=== PATIENT | female | born 1995 | race Two or more races ===

== ENCOUNTER 2025-01-08 15:34 | Emergency (ER) | payer MEDICAID, SELFPAY ==
[2025-01-08 15:59] VITALS: BP 148/99; PULSE 109; RESP 18; TEMP 37.6; O2SAT 97; BMI 43.7
--- NOTE | 2025-01-08 16:27 | PD.EDRME ---
Rapid Medical Screening Exam RME Arrival date/time: 01/08/25 15:34 This is a 29year old female with complaint of abdominal pain and vomiting. hx of diabetes. I have greeted and performed a focused initial assessment of this patient. Initial appropriate labs ordered at this time. A comprehensive ED assessment and evaluation of the patient and analysis of all test and completion of medical decision making process will be conducted by additional ED provider. Chief Complaint: Abdominal Pain Time Seen by Provider: 01/08/25 15:37 Vital signs: Vital Signs Temperature 99.7 F 01/08/25 15:59 Pulse Rate 109 H 01/08/25 15:59 Respiratory Rate 18 01/08/25 15:59 Blood Pressure 148/99 H 01/08/25 15:59 Pulse Oximetry (%) 97 01/08/25 15:59 Oxygen Delivery Method Room Air 01/08/25 15:59
[2025-01-08 16:45] LABS: Basophils % (Auto) 0 % (0-2.5); Eosinophils # (Auto) 0.1 Thou/mm3 (0.0-0.5); Eosinophils % (Auto) 1 % (0-10); Hematocrit 43.5 % (36.0-46.0); Hemoglobin 14.7 g/dL (12.0-16.0); Immature Granulocytes % (Auto) 0 % (0-0); Immature Granulocytes Auto 0.01 Thou/mm3 (0.00-0.00); Lymphocytes # (Auto) 0.9 Thou/mm3 (1.0-4.8); Lymphocytes % (Auto) 15 % (10-50); Mean Corpuscular HGB Conc 33.8 g/dl (31.0-37.0); Mean Corpuscular Hemoglobin 28.9 pg (25.0-35.0); Mean Corpuscular Volume 86 fL (80-100); Monocytes # (Auto) 0.4 Thou/mm3 (0.0-0.8); Monocytes % (Auto) 7 % (0-12); Neutrophils # (Auto) 4.5 Thou/mm3 (1.8-7.7); Neutrophils % (Auto) 76 % (37-80); Nucleated Red Blood Cell % 0 /100 WBC (0); Platelet Count 202 Thou/mm3 (140-440); RDW Standard Deviation 43.8 fL (36.4-46.3); Red Blood Count 5.09 Miln/mm3 (4.00-5.20); White Blood Count 5.8 Thou/mm3 (3.6-11.0)
[2025-01-08 17:08] LABS: Alanine Aminotransferase 12 U/L (10-49); Albumin, Serum 4.3 gm/dL (3.5-5.0); Albumin/Globulin Ratio 1.1 (1.2-2.2); Alkaline Phosphatase 93 U/L (46-116); Anion Gap 7 (7-16); Aspartate Amino Transferase 19 U/L (0-34); BUN/Creatinine Ratio 14 Ratio (12-20); Blood Urea Nitrogen 10 mg/dL (9-23); Calcium 8.4 mg/dL (8.3-10.6); Calcium (Corrected) 8.4 mg/dL (8.5-10.1); Carbon Dioxide 27.8 mMol/L (20.0-31.0); Chloride 104 mMol/L (98-107); Creatinine (Component) 0.7 mg/dL (0.6-1.3); Globulin 3.8 gm/dL (2.3-3.5); Glucose 114 mg/dL (74-106); Lipase 30 U/L (12-53); Osmolality,Calculated 277 (275-295); Potassium 3.8 mMol/L (3.4-5.1); Sodium 139 mMol/L (136-145); Total Protein 8.1 gm/dL (5.7-8.2); eGFR > 60 See Note
[2025-01-08 17:24] LABS: Collection Type, Urine Voided
[2025-01-08 17:37] LABS: HCG Qualitative,Urine Negative
[2025-01-08 17:40] LABS: Bacteria,Urine Rare; Bilirubin,Urine Negative (Negative); Blood,Urine Negative (Negative); Clarity,Urine Turbid (Clear/Hazy); Color,Urine Yellow (Lt Yel-Yel); Culture Indicated,Urine Contaminated; Glucose, Urine Negative (Negative); Ketones,Urine Negative (Negative); Leukocyte Esterase,Urine Positive (Negative); Nitrite,Urine Negative (Negative); Protein,Urine 1+ (Neg - Trace); RBC,Urine 3 /hpf (0-3); Specific Gravity,Urine 1.034 (1.001-1.035); Squamous Epithelial Cell,Urine 21 /hpf (0-5); Urobilinogen,Urine Negative mg/dL (0.0-1.0); WBC,Urine 26 /hpf (0-5)
--- NOTE | 2025-01-08 18:37 | PD.EDABDPN ---
ED Abdominal Pain RME/HPI General Chief Complaint: Abdominal Pain Stated complaint: ABD PAIN, VOMITING X YESTERDAY Time seen by provider: 01/08/25 15:37 Arrival date/time: 01/08/25 15:34 RME / HPI RME / HPI narrative: 01/08/25 15:34 This is a 29year old female with complaint of abdominal pain and vomiting. hx of diabetes. I have greeted and performed a focused initial assessment of this patient. Initial appropriate labs ordered at this time. A comprehensive ED assessment and evaluation of the patient and analysis of all test and completion of medical decision making process will be conducted by additional ED provider. Dr. Verdin?s Main ED Evaluation: 29yo female with a history of DM (not on medications) presents to the ED for a chief complaint of LUQ pain x 3 days. Patient states she's had intermittent LUQ pain that migrates across her abdomen for the last 1 month, but reports it's worsened over the last 3 days. Patient states her pain now radiates to her left flank and currently rates her pain a 6 out of 10 in severity. Patient reports associated nausea and vomiting since yesterday, along with urinary frequency and body aches. Patient denies any diarrhea, hematuria, weight loss, dysuria or any other associated symptoms. She denies any previous abdominal surgeries. NKA. Related Data Previous Rx's ?Medication ?Instructions ?Recorded metformin 500 mg tablet 500 mg PO BID #60 tabs 07/06/20 nystatin 100,000 unit/gram topical 1 applic topical BID fungal rash 07/06/20 cream #60 grams hydroxyzine HCl 25 mg tablet 25 mg PO BID PRN nausea and 08/13/22 vomiting #14 tabs ciprofloxacin HCl 500 mg tablet 500 mg PO BID #14 tabs 08/16/22 acetaminophen 650 mg 650 mg PO Q8H PRN fever or pain 08/20/22 tablet,extended release #30 tabs ibuprofen 600 mg tablet 600 mg PO Q8H PRN fever or pain 08/20/22 #30 tabs aluminum-mag hydroxide-simethicone 10 ml PO TID PRN indigestion 01/08/25 400 mg-400 mg-40 mg/5 mL oral susp #3,000 mL (Almacone-2) famotidine 20 mg tablet (Pepcid) 20 mg PO BID GERD #14 tabs 01/08/25 ondansetron 4 mg disintegrating 4 mg PO Q6H PRN nausea and 01/08/25 tablet vomiting #14 tabs Allergies Allergy/AdvReac Type Severity Reaction Status Date / Time No Known Allergies Allergy Verified 01/08/25 15:37 Review of Systems Review of Systems Systems Reviewed: All systems reviewed, normal except as documented Past Medical History Past Medical History CARDIAC: Negative Congestive Heart Failure RESPIRATORY: Negative Chronic Obstructive Pulmonary Disease (COPD) GENITOURINARY: Negative Renal Disease ENDOCRINE: Negative Diabetes Mellitus Type 1 or Diabetes Mellitus Type 2 Social History SMOKING STATUS: Never smoker ED Exam Narrative Physical exam: GENERAL APPEARANCE: alert and oriented x 4, well-developed, well-nourished, no acute distress VITALS: All vitals were reviewed and the pulse ox is 97% on room air, which is normal according to my interpretation. HEENT: Normocephalic, atraumatic; pupils equal, round, reactive to light; EOMI; mucous membranes pink, moist; oropharynx clear NECK: Supple LUNGS: CTABL; no wheezes, no rales, no rhonchi HEART: Regular rate, regular rhythm; normal S1, S2; no murmurs ABDOMEN: non distended; normal BS; soft, LLQ tenderness, no guarding, no rebound; no masses, no organomegaly, no hernia BACK: mild left CVA tenderness EXTREMITIES: atraumatic; no edema NEUROLOGIC: awake; alert and oriented x4; cranial nerves II-XII grossly intact; no focal sensory or motor deficits PSYCHIATRIC: appropriate mood and affect SKIN: warm, dry, normal color; no rashes Course Quality Measures none Orders Category Date Time Status Bedside COVID-19 Antigen Test NOW Care 01/08/25 18:43 Completed Bedside Influenza A&B Antigen Test NOW Care 01/08/25 18:[address] Screening NOW Care 01/08/25 18:42 Completed Production Control Manager STAT Care 01/08/25 18:37 Completed Continuous Pulse Oximetry STAT Care 01/08/25 18:38 Completed Insert IV STAT Care 01/08/25 18:37 Completed NPO STAT Care 01/08/25 18:[address] abdomen pelvis wo/w con Stat Exams 01/08/25 18:40 Completed CBC Stat Lab 01/08/25 16:37 Completed Comprehensive Metabolic Panel Stat Lab 01/08/25 16:37 Completed Free T4 (Free Thyroxine) Stat Lab 01/08/25 16:37 Completed HCG Qualitative,Urine Stat Lab 01/08/25 16:50 Completed Lipase Stat Lab 01/08/25 16:37 Completed Magnesium Stat Lab 01/08/25 16:37 Completed Thyroid Stimulating Hormone Stat Lab 01/08/25 16:37 Completed Urinalysis, C/S if Indicated Stat Lab 01/08/25 16:50 Completed Acetaminophen Ivpb [Ofirmev Inj] Med 01/08/25 18:44 Discontinued 1,000 mg in 100 ml IV X1 Morphine Inj Med 01/08/25 18:40 Discontinued 2 mg IVP Q30M PRN Ondansetron Inj [Zofran Inj] Med 01/08/25 18:40 Discontinued 4 mg IV X1 ONE Sodium Chloride 0.9% 1000 ml [Ns] 1,000 ml Med 01/08/25 18:37 Discontinued IV 999 mls/hr Vital Signs Vital signs: Vital Signs Temperature 99.7 F 01/08/25 15:59 Pulse Rate 109 H 01/08/25 15:59 Respiratory Rate 18 01/08/25 15:59 Blood Pressure 148/99 H 01/08/25 15:59 Pulse Oximetry (%) 97 01/08/25 15:59 Oxygen Delivery Method Room Air 01/08/25 15:59 Abdominal Pain MDM MDM Narrative MDM Narrative:: Scribe Attestation: 01/08/25 - Erum Hunt am scribing for and in the presence of Dr. Verdin. 1844: CT abdomen pelvis ordered to r/o kidney stone, diverticulitis, and UTI. 0928: Patient's repeat HR is in the 80s and she feels significantly better. Patient is stable to be discharged home. Patient data External records reviewed:: [facility] previous records (Per chart review, patient was seen here on 09/15/22 for UTI.) Clinical information provided by:: patient Social determinants that could affect healthcare access:: none Patient has the following chronic illnesses:: DM How is presenting disease/condition affected by chronic disease/condition?: uneffected by Evaluation data The following diagnostics were reviewed and interpreted by me:: lab results and radiology exam(s) Lab and/or radiology exams considered but not ordered:: none Interpretation Summary: CBC is normal, Lipase is normal, Free T4 and TSH are normal, Bedside COVID and Influenza are negative, according to my interpretation. --------- [facility] Report Signed Patient: AQUILINO ALLISON. Record#: [id number] Birthdate: 1995 Age/Sex: 29 / F [facility] Attending Dr: Ordering Physician: Darrel Verdin MD Date of Service: 01/08/25 Procedure(s): CT abdomen pelvis wo/w con Accession Number(s): [id number] cc: Montez Bueno MD; NO PRIMARY/FAMILY,PHYSICIAN; Darrel Verdin MD~ Examination: CT abdomen, without intravenous contrast. CT pelvis, without intravenous contrast. CT abdomen, with intravenous contrast. CT pelvis, with intravenous contrast. 2-D sagittal coronal reconstructions. Date and time of exam:January 08, 2025 1935 hours INDICATIONS: Left upper abdominal pain beginning 3 days ago CTDI: vol (mGy) 22.1 DLP: (mGycm) 2336 Technique: Multiple 3.0 axial images of the abdomen and pelvis without intravenous contrast, 3.0 mm slice thickness. Multiple 3.0 postcontrast images abdomen and pelvis also obtained, post intravenous injection of 60 cc Isovue 370 2-D sagittal and coronal reconstructions. Low dose protocols were performed. One or more of the following dose reduction techniques were used; automated exposure control, adjustment of the mA and/or KV according to patient size, use of iterative reconstruction technique. Findings: Hepatomegaly 22 cm diffuse fatty infiltration No focal liver or splenic lesions No gallstones No pancreatic or adrenal mass No renal or ureteral calculi, no hydronephrosis 22 mm fat-containing umbilical hernia Normal appendix No bowel obstruction Partially retroverted uterus No uterine or adnexal mass No bladder mass Advanced degenerative disc disease L3-L4, L4-L5 IMPRESSION: Hepatomegaly, 22 cm, diffuse fatty infiltration throughout the liver No renal or ureteral calculi, no hydronephrosis Normal appendix No bowel obstruction Scattered colonic diverticulosis, no diverticulitis Dictated By: Montez Bueno MD Signed By: <Electronically signed by Montez Bueno MD in OV> 01/08/25 2101 Medications / Prescriptions Medications or Prescriptions considered but not ordered:: none Medication administrations:: Medication Administration History Discontinued Medications Sodium Chloride (Ns) 1,000 mls @ 999 mls/hr IV .Q1H1M ONE Stop: 01/08/25 19:37 Last Infusion: 01/08/25 20:46 Dose: Infused Documented By: Admin: 01/08/25 19:27 Dose: 999 mls/hr Documented By: CCT Acetaminophen (Ofirmev Inj) 1,000 mg in 100 mls @ 250 mls/hr IV X1 ONE Stop: 01/08/25 19:07 Last Infusion: 01/08/25 20:15 Dose: Infused Documented By: Admin: 01/08/25 19:26 Dose: 250 mls/hr Documented By: CCT Morphine Sulfate (Morphine Sulf Inj 10 Mg/Ml Vial) 2 mg IVP Q30M PRN PRN Reason: PAIN Ondansetron HCl (Ondansetron Inj 2 Mg/Ml Inj 2 Ml) 4 mg IV X1 ONE; Protocol Stop: 01/08/25 18:41 Last Admin: 01/08/25 19:26 Dose: 4 mg Documented By: CCT see above Consultations Consultation(s) initiated? (list below): No Diagnosis Differential diagnosis abdominal pain: diverticulitis and other (pyelonephritis, UTI, renal colic) Most likely diagnosis given after review of the tests above:: see clinical impression below Admission Indicated Admission indicated?: not indicated Admission Request Was there a request for admission?: No Disposition Plan Disposition Plan: Discharge Discharge Attestation Discharge Attestation: The patient and all family members were given an opportunity to ask questions and understood the discharge instructions. Discharge instructions specifically effects, indications for sooner follow up or return to the emergency department, and the expected course of current diagnosis. Patient condition: Stable Discharge Plan Plan Patient Disposition: HOME (Self Care) Discharge Disposition comment: Stable for discharge home Patient condition on transfer: Stable Prescriptions/Referrals Prescriptions/Med Rec: New ondansetron 4 mg tablet,disintegrating 4 mg PO Q6H PRN (Reason: nausea and vomiting) Qty: 14 0RF famotidine [Pepcid] 20 mg tablet 20 mg PO BID Qty: 14 0RF alum-mag hydroxide-simeth [Almacone-2] 400-400-40 mg/5 mL suspension 10 ml PO TID PRN (Reason: indigestion) Qty: 3000 0RF No Action metformin 500 mg tablet 500 mg PO BID Qty: 60 0RF nystatin 100,000 unit/gram cream 1 applic topical BID Qty: 60 0RF hydroxyzine HCl 25 mg tablet 25 mg PO BID PRN (Reason: nausea and vomiting) Qty: 14 0RF ciprofloxacin HCl 500 mg tablet 500 mg PO BID Qty: 14 0RF acetaminophen 650 mg tablet extended release 650 mg PO Q8H PRN (Reason: fever or pain) Qty: 30 0RF Rx Instructions: swallow whole; do not chew/break/dissolve/open ibuprofen 600 mg tablet 600 mg PO Q8H PRN (Reason: fever or pain) Qty: 30 0RF Referrals: No Primary/Family,Physician [Primary Care Provider] - In 1 week Problem List Clinical Impression: Abdominal pain, Vomiting Patient/Caregiver Discharge Instructions Discharge Activity: activity as tolerated Education Materials: Abdominal Pain, ED Vomiting (Adult) Additional Instructions: Please return to the emergency department if you have any worsening or any further medical problems. Otherwise you should follow-up with your primary care doctor within the next several days. Print Language: Wolof Stand Alone Forms: Gabby Award Info., Patient Portal Info Letter
--- NOTE | 2025-01-08 18:40 | XR_ITS ---
Examination: CT abdomen, without intravenous contrast. CT pelvis, without intravenous contrast. CT abdomen, with intravenous contrast. CT pelvis, with intravenous contrast. 2-D sagittal coronal reconstructions. Date and time of exam:January 08, 2025 1935 hours INDICATIONS: Left upper abdominal pain beginning 3 days ago CTDI: vol (mGy) 22.1 DLP: (mGycm) 2336 Technique: Multiple 3.0 axial images of the abdomen and pelvis without intravenous contrast, 3.0 mm slice thickness. Multiple 3.0 postcontrast images abdomen and pelvis also obtained, post intravenous injection of 60 cc Isovue 370 2-D sagittal and coronal reconstructions. Low dose protocols were performed. One or more of the following dose reduction techniques were used; automated exposure control, adjustment of the mA and/or KV according to patient size, use of iterative reconstruction technique. Findings: Hepatomegaly 22 cm diffuse fatty infiltration No focal liver or splenic lesions No gallstones No pancreatic or adrenal mass No renal or ureteral calculi, no hydronephrosis 22 mm fat-containing umbilical hernia Normal appendix No bowel obstruction Partially retroverted uterus No uterine or adnexal mass No bladder mass Advanced degenerative disc disease L3-L4, L4-L5 IMPRESSION: Hepatomegaly, 22 cm, diffuse fatty infiltration throughout the liver No renal or ureteral calculi, no hydronephrosis Normal appendix No bowel obstruction Scattered colonic diverticulosis, no diverticulitis
[2025-01-08 19:20] VITALS: BP 142/80; PULSE 94; RESP 18; TEMP 36.9; O2SAT 97
[2025-01-08] MEDS: ACETAMINOPHEN IVPB 1,000 MG/100 ML VIAL 250 MG IV (19:26)
[2025-01-08] MEDS: ONDANSETRON INJ 2 MG/ML INJ 2 ML 4 MG IV (19:26)
[2025-01-08] MEDS: SODIUM CHLORIDE 0.9% 1000 ML 1,000 ML 999 ML IV (19:27)
[2025-01-08 20:15] VITALS: PULSE 83
[2025-01-08 20:26] LABS: Free T4 (Free Thyroxine) 1.04 ng/dL (0.89-1.76); Magnesium 1.9 mg/dL (1.6-2.6); Thyroid Stimulating Hormone 1.48 uIU/mL (0.55-4.78)
[2025-01-08 22:10] VITALS: BP 133/81; PULSE 84; RESP 18; TEMP 36.9; O2SAT 99
== END 2025-01-08 22:10 | disposition home or self-care (01) ==
PROVIDERS: Nurse Practitioner Family; Emergency Provider Emergency Medicine
DX: K57.30 Diverticulosis of large intestine without perforation or abscess without bleeding (principal); R11.2 Nausea with vomiting, unspecified; E11.9 Type 2 diabetes mellitus without complications; K76.0 Fatty (change of) liver, not elsewhere classified
CPT/HCPCS: 36415; 74178; 80053; 81001; 81025; 83690; 83735; 84439; 84443; 85025; 87400; 87811; 96361; 96365; 96375; 99285; A4649; J0131; J2405; J7030; Q9967

== ENCOUNTER 2025-02-20 04:10 | Emergency (ER) | payer MEDICAID, SELFPAY ==
[2025-02-20 04:22] VITALS: BP 122/84; PULSE 90; RESP 17; TEMP 36.6; O2SAT 100
[2025-02-20 04:26] VITALS: PULSE 100; BMI 46.5
--- NOTE | 2025-02-20 04:57 | EDNOTE_ITS ---
<Statement entered by Patricia Oconnor MD - 03/04/25 19:09> As co-signing physician, I was present and available for consult prn. I concur with the plan and care as documented by the midlevel provider. ED Anxiety RME/HPI General Chief Complaint: Anxiety Stated Complaint: ANXIETY Time Seen by Provider: 02/20/25 04:52 Source: patient, RN notes reviewed and old records reviewed Arrival date/time: 02/20/25 04:10 Mode of arrival: ambulatory Limitations: no limitations RME / HPI RME / HPI narrative: 29yof presents to ED for 1-month history of intermittent anxiety and panic attacks that worsened today. Patient has hx of anxiety but currently not on anxiolytics. Reports recent stressors at home. c/o mild shortness of breath that has improved with decrease in anxiety. No cp, n/v, dizziness or SI/HI reported. 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 Related Data Previous Rx's ?Medication ?Instructions ?Recorded metformin 500 mg tablet 500 mg PO BID #60 tabs 07/06 nystatin 100,000 unit/gram topical 1 applic topical BI D fungal rash 07/06/20 cream #60 grams hydroxyzine HCl 25 mg tablet 25 mg PO BID PRN nausea a nd 08/13/22 vomiting #14 tabs ciprofloxacin HCl 500 mg tablet 500 mg PO BID #14 tabs 08/16/22 acetaminophen 650 mg 650 mg PO Q8H PRN fever or p ain 08/20/22 tablet,extended release #30 tabs ibuprofen 600 mg tablet 600 mg PO Q8H PRN fever or p ain 08/20/22 #30 tabs aluminum-mag hydroxide-simethicone 10 ml PO TID PRN in digestion 01/08/25 400 mg-400 mg-40 mg/5 mL oral susp #3,000 mL (Almacone-2) famotidine 20 mg tablet (Pepcid) 20 mg PO BID GERD #14 tabs 01/08/25 ondansetron 4 mg disintegrating 4 mg PO Q6H PRN nausea and 01/08/25 tablet vomiting #14 tabs hydroxyzine HCl 50 mg tablet 50 mg PO Q6H PRN anxiety #20 tabs 02/20/25 Allergies Allergy/AdvReac Type Severity Reaction Status Date / Time No Known Allergies Allergy Verified 01/08/25 15:37 Review of Systems Review of Systems Systems Reviewed: All systems reviewed, normal except as documented Constitutional Constitutional: Denies headache(s) ENT Ears, Nose, Mouth, and Throat: Denies dizziness and Denies headache(s) Cardiovascular Cardiovascular: Denies chest pain and Reports dyspnea Respiratory Respiratory: Reports dyspnea Neurologic Neurologic: Denies dizziness and Denies headache(s) Psychiatric Psychiatric: Reports anxiety, Denies homicidal ideation and Denies suicidal ideation Past Medical History Past Medical History GASTROINTESTINAL: Positive Obesity PSYCHO/SOCIAL: Positive Anxiety Social History SMOKING STATUS: Never smoker SUBSTANCE USE: does not use ALCOHOL: Never ED Exam General Limitations: Present no limitations General appearance: Present alert and in no apparent distress Head Head exam: Present atraumatic and normocephalic Eye Eye exam: Present normal appearance, PERRL and EOMI ENT ENT exam: Present normal exam and mucous membranes moist Neck Neck exam: Present normal inspection and full ROM Chest Chest inspection: Present normal inspection and symmetric chest wall rise Respiratory Respiratory exam: Present normal lung sounds bilaterally; Absent respiratory distress Cardiovascular Cardiovascular exam: Present regular rate and normal rhythm Extremities Exam Extremities exam: Present normal inspection and full ROM Neurological Exam Neurological exam: Present alert and oriented X3 Psychiatric Psychiatric exam: Present other (Tearful, mildly anxious); Absent homicidal ideation or suicidal ideation Skin Skin exam: Present warm, dry, intact and normal color Course Quality Measures none Vital Signs Vital signs: Vital Signs Temperature 97.8 F 02/20/25 04:22 Pulse Rate 90 02/20/25 04:22 Respiratory Rate 17 02/20/25 04:22 Blood Pressure 122/84 02/20/25 04:22 Pulse Oximetry (%) 100 02/20/25 04:22 Oxygen Delivery Method Room Air 02/20/25 04:22 Anxiety MDM Narrative MDM Narrative: 29yof presents to ED for 1-month history of intermittent anxiety and panic attacks that worsened today. Patient has hx of anxiety but currently not on anxiolytics. Reports recent stressors at home. c/o mild shortness of breath that has improved with decrease in anxiety. No cp, n/v, dizziness or SI/HI reported. 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 Patient reassessed. She is feeling better, anxiety has subsided. No SI/HI. Will rx atarax. Encouraged close pcp follow up. Stable for dc, RTED precautions given. Patient data External records reviewed:: [facility] previous records (5/17/25 ED visit for abdominal pain) Clinical information provided by:: patient Social determinants that could affect healthcare access:: mental health Patient has the following chronic illnesses:: anxiety How is presenting disease/condition affected by chronic disease/condition?: caused by Evaluation data The following diagnostics were reviewed and interpreted by me:: other (specify) (none) Lab and/or radiology exams considered but not ordered:: EKG: no cp reported Interpretation Summary: na Medications / Prescriptions Medications or Prescriptions considered but not ordered:: none Medication administrations:: po ativan administered in ED Consultations Consultation(s) initiated? (list below): No Diagnosis Differential diagnosis anxiety: hyperventilation, panic disorder and acute anxiety Most likely diagnosis given after review of the tests above:: anxiety Admission Indicated Admission indicated?: not indicated Admission Request Was there a request for admission?: No Disposition Plan Disposition Plan: Discharge Discharge Attestation Discharge Attestation: The patient and all family members were given an opportunity to ask questions and understood the discharge instructions. Discharge instructions specifically effects, indications for sooner follow up or return to the emergency department, and the expected course of current diagnosis. Patient condition: Stable Discharge Plan Plan Patient Disposition: HOME (Self Care) Patient condition on transfer: Stable Prescriptions/Referrals Prescriptions/Med Rec: New hydroxyzine HCl 50 mg tablet 50 mg PO Q6H PRN (Reason: anxiety) Qty: 20 0RF No Action metformin 500 mg tablet 500 mg PO BID Qty: 60 0RF nystatin 100,000 unit/gram cream 1 applic topical BID Qty: 60 0RF ondansetron 4 mg tablet,disintegrating 4 mg PO Q6H PRN (Reason: nausea and vomiting) Qty: 14 0RF famotidine [Pepcid] 20 mg tablet 20 mg PO BID Qty: 14 0RF alum-mag hydroxide-simeth [Almacone-2] 400-400-40 mg/5 mL suspension 10 ml PO TID PRN (Reason: indigestion) Qty: 3000 0RF hydroxyzine HCl 25 mg tablet 25 mg PO BID PRN (Reason: nausea and vomiting) Qty: 14 0RF ciprofloxacin HCl 500 mg tablet 500 mg PO BID Qty: 14 0RF acetaminophen 650 mg tablet extended release 650 mg PO Q8H PRN (Reason: fever or pain) Qty: 30 0RF Rx Instructions: swallow whole; do not chew/break/dissolve/open ibuprofen 600 mg tablet 600 mg PO Q8H PRN (Reason: fever or pain) Qty: 30 0RF Referrals: Kevin Rick [Primary Care Provider] - In 1 week Problem List Clinical Impression: Anxiety Patient/Caregiver Discharge Instructions Education Materials: ED Anxiety Reaction Print Language: Trinidadian Stand Alone Forms: [facility] Award Info., Patient Portal Info Letter PA/GETTERING FILAMENT MACHINE OPERATOR Supervising Physician PA/GETTERING FILAMENT MACHINE OPERATOR Supervising Physician: Elvin
[2025-02-20] MEDS: LORazepam 0.5 MG TABLET 1 MG PO (05:28)
[2025-02-20 05:50] VITALS: RESP 16
== END 2025-02-20 05:51 | disposition home or self-care (01) ==
PROVIDERS: Emergency Provider Emergency Medicine; PCP Family Medicine
DX: F41.9 Anxiety disorder, unspecified (principal)
CPT/HCPCS: 99282; A9270

== ENCOUNTER 2025-07-30 19:12 | Emergency (ER) | payer MEDICAID, SELFPAY ==
[2025-07-30 19:14] VITALS: BMI 43.8
[2025-07-30 19:28] VITALS: BP 172/90; PULSE 99; RESP 20; TEMP 37.1; O2SAT 100
--- NOTE | 2025-07-30 19:32 | XR_ITS ---
EXAMINATION: Left hand 2 views TECHNIQUE: AP lateral left hand 2 views Date and time: July 30, 2025, 193 hours INDICATIONS: Injury to the hand today, hand pain. FINDINGS: No acute fracture No dislocation No foreign body IMPRESSION: No acute fracture
--- NOTE | 2025-07-30 19:32 | XR_ITS ---
Examination: Knee, left, 3 views Technique: Knee AP, lateral, oblique 3 views Date and time of exam: July 30, 2025, 1938 hours INDICATIONS: Injury to the knee today, knee pain. FINDINGS: No fracture or dislocation No foreign body IMPRESSION: No fracture or dislocation
--- NOTE | 2025-07-30 19:32 | XR_ITS ---
EXAMINATION: Left wrist 2 views TECHNIQUE: AP lateral left wrist 2 views Date and time: July 30, 2025, 194 hours INDICATIONS: Injury of the wrist today, wrist pain FINDINGS: No acute fracture No foreign body No cortical bone destruction IMPRESSION: No acute fracture
--- NOTE | 2025-07-30 21:22 | PC.NURSE ---
knee immobilizer applied at this time per providers order, pt tolerated well. denies pain or discomfort
--- NOTE | 2025-07-30 21:23 | PC.NURSE ---
baudilio bandage applied to L hand, pt tolerated well
--- NOTE | 2025-07-31 05:01 | EDNOTE_ITS ---
ED Fall Injury RME/HPI General Chief Complaint: Fall Stated Complaint: LEFT HAND, LEFT KNEE PAIN S/P FALL Time Seen by Provider: 07/30/25 19:21 Arrival date/time: 07/30/25 19:12 This is a case of 30-year-old female with no medical history came into the emergency room due to fall injury history of present illness started 2 hours prior to arrival in the emergency room patient tripped and fell and landed on his left knee patient also complaining of left wrist and left hand pain patient states that she used his left hand and wrist to stop falling patient denies any head neck chest or abdominal injury no loss of consciousness Limitations: no limitations Related Data Previous Rx's ?Medication ?Instructions ?Recorded metformin 500 mg tablet 500 mg PO BID #60 tabs 07/06 nystatin 100,000 unit/gram topical 1 applic topical BI D fungal rash 07/06/20 cream #60 grams hydroxyzine HCl 25 mg tablet 25 mg PO BID PRN nausea a nd 08/13/22 vomiting #14 tabs ciprofloxacin HCl 500 mg tablet 500 mg PO BID #14 tabs 08/16/22 acetaminophen 650 mg 650 mg PO Q8H PRN fever or p ain 08/20/22 tablet,extended release #30 tabs ibuprofen 600 mg tablet 600 mg PO Q8H PRN fever or p ain 08/20/22 #30 tabs aluminum-mag hydroxide-simethicone 10 ml PO TID PRN in digestion 01/08/25 400 mg-400 mg-40 mg/5 mL oral susp #3,000 mL (Almacone-2) famotidine 20 mg tablet (Pepcid) 20 mg PO BID GERD #14 tabs 01/08/25 ondansetron 4 mg disintegrating 4 mg PO Q6H PRN nausea and 01/08/25 tablet vomiting #14 tabs hydroxyzine HCl 50 mg tablet 50 mg PO Q6H PRN anxiety #20 tabs 02/20/25 hydrocodone 5 mg-acetaminophen 325 1 tab PO Q6H PRN pa in #12 tabs 07/30/25 mg tablet Allergies Allergy/AdvReac Type Severity Reaction Status Date / Time latex Allergy Hives Verified 07/30/25 19:13 Review of Systems Review of Systems Systems Reviewed: All systems reviewed, normal except as documented Constitutional Constitutional: Reports system reviewed and no additional complaints, except as documented and Reports as per HPI Cardiovascular Cardiovascular: Reports system reviewed and no additional complaints, except as documented and Reports as per HPI Respiratory Respiratory: Reports system reviewed and no additional complaints, except as documented and Reports as per HPI Gastrointestinal Gastrointestinal: Reports system reviewed and no additional complaints, except as documented and Reports as per HPI Musculoskeletal Musculoskeletal: Reports system reviewed and no additional complaints, except as documented and Reports as per HPI Neurologic Neurologic: Reports system reviewed and no additional complaints, except as documented and Reports as per HPI Past Medical History Past Medical History CARDIAC: Negative Cardiac Disorders or Congestive Heart Failure RESPIRATORY: Positive Asthma; Negative Chronic Obstructive Pulmonary Disease (COPD) GASTROINTESTINAL: Positive Obesity GENITOURINARY: Negative Renal Disease ENDOCRINE: Positive Endocrine Disorders and Diabetes Mellitus Type 2; Negative Diabetes Mellitus Type 1 HEMATOLOGIC: Negative Sickle Cell Disease PSYCHO/SOCIAL: Positive Anxiety Social History SMOKING STATUS: Never smoker SUBSTANCE USE: does not use ED Exam General Limitations: Present no limitations General appearance: Present alert, in no apparent distress and other (Patient is awake alert oriented not in distress nontoxic looking well-hydrated well- nourished) Head Head exam: Present atraumatic, normocephalic and normal inspection Eye Eye exam: Present normal appearance, PERRL and EOMI ENT ENT exam: Present normal exam, normal oropharynx and mucous membranes moist Neck Neck exam: Present normal inspection, full ROM and trachea midline; Absent tenderness, meningismus, lymphadenopathy or thyromegaly Chest Chest inspection: Present normal inspection and symmetric chest wall rise; Absent tenderness Respiratory Respiratory exam: Present normal lung sounds bilaterally; Absent respiratory distress, wheezes, stridor, accessory muscle use or prolonged expiratory phase Cardiovascular Cardiovascular exam: Present regular rate, normal rhythm and normal heart sounds; Absent bradycardia, tachycardia, irregular rhythm, systolic murmur or diastolic murmur Abdominal Exam Abdominal exam: Present soft and normal bowel sounds; Absent distention, tenderness, guarding, rebound, rigidity, diminished bowel sounds, hyperactive bowel sounds, hypoactive bowel sounds or organomegaly Extremities Exam Extremities exam: Present normal inspection and full ROM Expanded Upper Extremity Exam Forearm/Wrist exam: Present tenderness, swelling and other (ROM intact neurovascular intact); Absent abrasion, laceration, ecchymosis, deformity, crepitus, dislocation, erythema, tenderness over anatomical snuff box or pain with axial thumb loading Hand exam: Present tenderness, swelling and other (ROM intact neurovascular intact no snuffbox tenderness); Absent abrasion, laceration, skin avulsion, ecchymosis, deformity, crepitus, dislocation, erythema, amputation, nail avulsion or subungual hematoma Expanded Lower Extremity Exam Knee exam: Present tenderness, swelling, knee extension intact and other (ROM intact neurovascular intact negative Bennett sign); Absent abrasion, laceration, ecchymosis, deformity, crepitus, dislocation, erythema, effusion, anterior drawer sign, posterior draw sign, pain with valgus, laxity with valgus, pain with varus or laxity with varus Lower leg exam: Present Achilles tendon intact; Absent Homans' sign Back Exam Back exam: Present normal inspection and full ROM Neurological Exam Neurological exam: Present alert, oriented X3, CN II-XII intact, normal gait and reflexes normal; Absent motor sensory deficit Psychiatric Psychiatric exam: Present normal affect and normal mood Skin Skin exam: Present warm, dry, intact and normal color Course Quality Measures none Orders Category Date Time Status Apply knee immobilizer NOW Care 07/30/25 21:18 Completed XR hand LT 2V Stat Exams 07/30/25 19:32 Completed XR knee LT 3V Stat Exams 07/30/25 19:32 Completed XR wrist LT 2V Stat Exams 07/30/25 19:32 Completed Vital Signs Vital signs: Vital Signs Temperature 98.8 F 07/30/25 19:28 Pulse Rate 99 07/30/25 19:28 Respiratory Rate 20 07/30/25 19:28 Blood Pressure 172/90 H 07/30/25 19:28 Pulse Oximetry (%) 100 07/30/25 19:28 Oxygen Delivery Method Room Air 07/30/25 19:28 Oxygen saturation is 100% in room air normal Fall MDM Narrative MDM Narrative:: This is a case of 30-year-old female with no medical history came into the emergency room due to fall injury history of present illness started 2 hours prior to arrival in the emergency room patient tripped and fell and landed on his left knee patient also complaining of left wrist and left hand pain patient states that she used his left hand and wrist to stop falling patient denies any head neck chest or abdominal injury no loss of consciousness physical exam ination patient is awake alert oriented not in distress nontoxic looking well- hydrated well nourished patient noted to have tenderness in the dorsal aspect of the left hand and left wrist with mild swelling but no crepitation no deformity ROM intact pulses were full and equal capillary refill less than 2 seconds sensory intact patient also noted to have tenderness on the left knee with mild swelling but no patellar tenderness nor swelling no crepitation no deformity ROM intact neurovascular intact x-ray of the left knee left hand left wrist were normal no fracture no dislocation Simeon bandage was applied to the left hand and left wrist knee immobilizer was applied to the left knee both are neurovascular intact patient tolerated well RICE treatment will continue by the patient at home patient will follow-up with PCP in 2 days for reevaluation and for any worsening symptoms or any emergent concern return precaution in the ER is advisede Patient was discharged with comfortable condition walking with stable gait. Patient verbalized no further complains explained diagnosis and answered patient question. Patient is comfortable with the proposed management plan including the need to follow up with his/her primary care physician and any specialist if applicable Discussed patient for any urgent condition or worsening sx, He/She needed to go to emergency room immediately or call 911. Patient acknowledge the responsibility to follow up as instructed and to monitor her/his symptoms. For any persistence of the symptoms for more than 3-5 days return precaution advised. Discussed the result of the test and was given printed discharge instruction Patient data External records reviewed:: [facility] previous records Clinical information provided by:: patient Social determinants that could affect healthcare access:: none Patient has the following chronic illnesses:: None How is presenting disease/condition affected by chronic disease/condition?: no chronic disease Evaluation data The following diagnostics were reviewed and interpreted by me:: radiology exam(s) Lab and/or radiology exams considered but not ordered:: Reviewed Interpretation Summary: Reviewed Medications / Prescriptions Medications or Prescriptions considered but not ordered:: Given Medication administrations:: Given Consultations Consultation(s) initiated? (list below): No Diagnosis Fall Differential Diagnosis: fracture of wrist Most likely diagnosis given after review of the tests above:: Hand wrist knee sprain Admission Indicated Admission indicated?: not indicated Explain why admission is indicated or not indicated:: Not indicated Admission Request Was there a request for admission?: No Admission Attestation Admission request attestation: Not indicated Disposition Plan Disposition Plan: Discharge Discharge Attestation Discharge Attestation: The patient and all family members were given an opportunity to ask questions and understood the discharge instructions. Discharge instructions specifically effects, indications for sooner follow up or return to the emergency department, and the expected course of current diagnosis. Patient condition: Stable Discharge Plan Plan Patient Disposition: HOME (Self Care) Patient condition on transfer: Stable Prescriptions/Referrals Prescriptions/Med Rec: New hydrocodone-acetaminophen 5-325 mg tablet 1 tab PO Q6H MDD max 4 tabs per day PRN (Reason: pain) Qty: 12 0RF No Action metformin 500 mg tablet 500 mg PO BID Qty: 60 0RF nystatin 100,000 unit/gram cream 1 applic topical BID Qty: 60 0RF ondansetron 4 mg tablet,disintegrating 4 mg PO Q6H PRN (Reason: nausea and vomiting) Qty: 14 0RF famotidine [Pepcid] 20 mg tablet 20 mg PO BID Qty: 14 0RF alum-mag hydroxide-simeth [Almacone-2] 400-400-40 mg/5 mL suspension 10 ml PO TID PRN (Reason: indigestion) Qty: 3000 0RF hydroxyzine HCl 50 mg tablet 50 mg PO Q6H PRN (Reason: anxiety) Qty: 20 0RF hydroxyzine HCl 25 mg tablet 25 mg PO BID PRN (Reason: nausea and vomiting) Qty: 14 0RF ciprofloxacin HCl 500 mg tablet 500 mg PO BID Qty: 14 0RF acetaminophen 650 mg tablet extended release 650 mg PO Q8H PRN (Reason: fever or pain) Qty: 30 0RF Rx Instructions: swallow whole; do not chew/break/dissolve/open ibuprofen 600 mg tablet 600 mg PO Q8H PRN (Reason: fever or pain) Qty: 30 0RF Referrals: Kevin Rick [Primary Care Provider] - In 1 week Problem List Clinical Impression: Hand sprain, Left wrist sprain, Left knee sprain Patient/Caregiver Discharge Instructions Education Materials: ED Knee Sprain, ED Hand Sprain, ED Wrist Sprain, ED RICE Additional Instructions: Follow-up with your primary care physician in 2 days for reevaluation and possible referral to Ortho if symptoms persist for possible MRI of the left knee to rule out meniscus or ligament injury worsening symptoms or emergent concern call 911 or go to the nearest emergency room ice pack every 2 hours for 20 minutes for 24 hours then alternate with warm compress keep the knee immobilizer and Simeon bandage in place until cleared by your primary care physician take [place] as needed for pain Print Language: [place] Stand Alone Forms: Gabby Award Info., Patient Portal Info Letter PA/[employer] Supervising Physician PA/[employer] Supervising Physician: Dr [email or web address] pierce
== END 2025-07-30 21:24 | disposition home or self-care (01) ==
PROVIDERS: Emergency Provider Emergency Medicine; PCP Family Medicine
DX: S83.92XA Sprain of unspecified site of left knee, initial encounter (principal); S63.502A Unspecified sprain of left wrist, initial encounter; S63.92XA Sprain of unspecified part of left wrist and hand, initial encounter; W01.0XXA Fall on same level from slipping, tripping and stumbling without subsequent striking against object, initial encounter
CPT/HCPCS: 73100; 73120; 73562; 99282